=== PATIENT | female | born 1960 | race Caucasian/White ===

== ENCOUNTER 2023-10-12 08:15 | Outpatient (RCR) | payer BC, SELFPAY | END 2023-12-04 09:11 | disposition home or self-care (01) | PROVIDERS: PCP Internal Medicine; Visit Provider Family Medicine | DX: M25.562 Pain in left knee (principal); M54.16 Radiculopathy, lumbar region; M79.672 Pain in left foot; Z51.89 Encounter for other specified aftercare | CPT/HCPCS: 97110; 97140; 97161 ==